=== PATIENT | female | born 1985 | race Caucasian/White ===

== ENCOUNTER 2019-05-28 03:06 | Emergency (ER) | payer SELFPAY ==
[~2019-05-28] VITALS: Ht 154.9 cm; Wt 73.0 kg
[2019-05-28] MEDS ORDERED: IBUPROFEN 600MG TABLET PO ONE (04:30)
[2019-05-28 05:08] VITALS: BP 122/79
== END 2019-05-28 05:40 | disposition home or self-care (01) ==
LOC: ER 03:44
DX: J10.1 Influenza due to other identified influenza virus with other respiratory manifestations (principal); R51 Headache; M54.6 Pain in thoracic spine; R00.0 Tachycardia, unspecified; Z98.890 Other specified postprocedural states
CPT/HCPCS: 81025; 87804; 99283